=== PATIENT | male | born 1970 | race Caucasian/White ===

== ENCOUNTER 2017-04-13 12:24 | Emergency (ER) | payer OTHER ==
[~2017-04-13] VITALS: Ht 180.3 cm; Wt 65.8 kg
--- NOTE | ~2017-04-13 | EKG ---
[place] [address] [place] [address] ELECTROCARDIOGRAM REPORT Name: WESLY BRAN [id number] Admission: 04/13/17 Attend Phys: Discharge: 04/13/17 Date of : 72 Report #: [id number] THIS REPORT FOR: //name// [facility] ED Test Date: 2017-04-13 Test Time: 12:36:39 Pat Name: WESLY BRAN Department: Room: Gender: M Time Study Technician: [id number] : 1970 Requested By: Oumou Sethi Order Number: [id number] MD: Carl Siegel Measurements Intervals [place] Rate: 85 P: 62 TN: 141 QRS: -34 QRSD: 96 T: 63 QT: 388 QTc: 462 Interpretive Statements Sinus rhythm Left axis deviation Anterior infarct, old No previous ECG available for comparison Electronically Signed On 04-13-2017 17:38:54 CDT by Carl Siegel [email or web address] <ELECTRONICALLY SIGNED> By: Carl Siegel MD, [facility] 04/13/17 1738 1236 1236 Carl Siegel MD, FACC /EPI
[2017-04-13] MEDS ORDERED: VALIUM5 MG PO (14:30)
[2017-04-13] MEDS ORDERED: MOBIC15 MG PO (14:30)
[2017-04-13 14:43] VITALS: BP 119/86
== END 2017-04-13 14:32 | disposition home or self-care (01) ==
LOC: ER 12:24
DX: M62.838 Other muscle spasm (principal); I25.2 Old myocardial infarction; F17.210 Nicotine dependence, cigarettes, uncomplicated; F10.99 Alcohol use, unspecified with unspecified alcohol-induced disorder; F12.10 Cannabis abuse, uncomplicated; Z98.890 Other specified postprocedural states